=== PATIENT | male | born 1980 | race Two or more races ===

== ENCOUNTER 2020-04-27 12:29 | Inpatient (IN) | payer MEDICAID, OTHER ==
[~2020-04-27] VITALS: Ht 180.3 cm; Wt 113.0 kg
[2020-04-27] MEDS ORDERED: cloNIDine HCL 0.1 MG TAB PO ONE ×2 (13:15→21:15)
[2020-04-27 13:52] LABS: Basophils # (auto) 0.1 10 ^3/uL (0-0.2); Basophils % (auto) 0.9 % (0.0-2.0); Eosinophils # (auto) 0.3 10 ^3/uL (0-0.8); Eosinophils % (auto) 4.3 % (0.0-7.0); Hematocrit 45.1 % (41.0-53.0); Hemoglobin 15.3 g/dL (13.5-17.5); Lymphocytes # (auto) 1.8 10 ^3/uL (0.4-5.4); Lymphocytes % (auto) 29.7 % (10.0-50.0); Mean Corpuscular Hemoglobin 31.4 pg (28.0-32.0); Mean Corpuscular Hgb Conc. 33.9 g/dL (32.0-36.0); Mean Corpuscular Volume 92.6 fL (80.0-100.0); Monocytes # (auto) 0.6 10 ^3/uL (0-1.3); Monocytes % (auto) 9.5 % (0.0-12.0); Neutrophils # (auto) 3.3 10 ^3/uL (1.6-8.6); Neutrophils % (auto) 55.6 % (37.0-80.0); Nucleated Red Blood Cells % 0.1 %; Platelet Count (auto) 210 10^3/uL (140-450); Red Blood Cells 4.87 10^6/uL (4.5-5.90); Red Cell Distribution Width 13.3 % (11.8-14.3)
[2020-04-27 14:08] LABS: INR 1.12 (0.9-1.15)
[2020-04-27 14:18] LABS: Albumin 3.5 g/dL (3.4-5.0); BUN/Creatinine Ratio 6.7; Potassium 3.6 mmol/L (3.5-5.1)
[2020-04-27 14:20] LABS: Bilirubin, Total 0.8 mg/dL (0.2-1.0); Total Protein 9.7 g/dL (6.4-8.2)
[2020-04-27] MEDS ORDERED: OXYMETAZOLINE HCL 0.05 % NASAL SPRAY 15ML EACHNOSTRI ONE (16:15)
[2020-04-27] MEDS ORDERED: COCAINE HCL 4% TOP SOL 4ML TOP ONE (16:30)
[2020-04-27] MEDS ORDERED: SILVER NITRATE-POTAS NITRA STICK TOP ONE (16:30)
[2020-04-27] MEDS ORDERED: diazePAM 5 MG TAB PO ONE (19:30)
[2020-04-27] MEDS ORDERED: ACETAMINOPHEN 325 MG TAB PO ONE (20:15)
[2020-04-27] MEDS ORDERED: HYDROcodone-ACET 5/325MG TAB PO ONE (20:15)
[2020-04-27] MEDS ORDERED: cloNIDine HCL 0.1 MG TAB PO PRN (22:45)
[2020-04-27] MEDS ORDERED: TEMAZEPAM 15 MG CAP PO PRN (22:45)
[2020-04-27] MEDS ORDERED: ONDANSETRON HCL 4 MG/2 ML VIAL IV PRN (22:45)
[2020-04-27] MEDS ORDERED: LABETALOL HCL 5 MG/ML 4ML SYRINGE IV ONE (22:45)
[2020-04-27 23:23] LABS: Hematocrit 42.2 % (41.0-53.0); Hemoglobin 14.4 g/dL (13.5-17.5)
[2020-04-28] MEDS ORDERED: hydrALAZINE HCL 20 MG/ML VL IV ONE (04:00)
[2020-04-28] MEDS: ACETAMINOPHEN 325 MG TAB PO PRN ×3 (04:19→15:31)
[2020-04-28 06:07] LABS: Basophils # (auto) 0 10 ^3/uL (0-0.2); Basophils % (auto) 0.5 % (0.0-2.0); Eosinophils # (auto) 0.1 10 ^3/uL (0-0.8); Eosinophils % (auto) 1.5 % (0.0-7.0); Hematocrit 43.2 % (41.0-53.0); Hemoglobin 14.7 g/dL (13.5-17.5); Lymphocytes # (auto) 1.6 10 ^3/uL (0.4-5.4); Mean Corpuscular Hemoglobin 31.6 pg (28.0-32.0); Monocytes # (auto) 0.7 10 ^3/uL (0-1.3); Monocytes % (auto) 7.8 % (0.0-12.0); Neutrophils # (auto) 6.1 10 ^3/uL (1.6-8.6); Neutrophils % (auto) 71.2 % (37.0-80.0); Nucleated Red Blood Cells % 0.1 %; Platelet Count (auto) 198 10^3/uL (140-450); Red Blood Cells 4.65 10^6/uL (4.5-5.90); Red Cell Distribution Width 13.4 % (11.8-14.3); White Blood Cell 8.6 10^3/uL (4.4-10.8)
[2020-04-28 06:29] LABS: Calcium 8.5 mg/dL (8.5-10.1); Potassium 3.5 mmol/L (3.5-5.1)
[2020-04-28 06:31] LABS: BUN/Creatinine Ratio 10.6
[2020-04-28] MEDS ORDERED: LISINOPRIL 10 MG TAB PO SCH (10:00)
[2020-04-28] MEDS: FAMOTIDINE 20 MG TAB PO SCH ×2 (10:40→21:27)
[2020-04-28] MEDS ORDERED: cloNIDine HCL 0.1 MG TAB PO PRN (15:00)
[2020-04-28] MEDS ORDERED: amLODIPine BESYLATE 5 MG TAB PO ONE (15:00)
[2020-04-28] MEDS ORDERED: METOPROLOL SUCCINATE XL 50 MG TAB PO ONE (15:15)
[2020-04-28 16:27] VITALS: BP 158/88
[2020-04-28] MEDS ORDERED: LORazepam 0.5 MG TAB PO PRN (17:15)
[2020-04-28 22:00] VITALS: BP 145/82
[2020-04-29 05:10] VITALS: BP 147/70
[2020-04-29 07:17] LABS: Potassium 3.8 mmol/L (3.5-5.1)
[2020-04-29 07:18] LABS: Basophils # (auto) 0 10 ^3/uL (0-0.2); Basophils % (auto) 0.4 % (0.0-2.0); Eosinophils # (auto) 0.1 10 ^3/uL (0-0.8); Eosinophils % (auto) 0.8 % (0.0-7.0); Hematocrit 43.5 % (41.0-53.0); Hemoglobin 15.2 g/dL (13.5-17.5); Lymphocytes # (auto) 2.2 10 ^3/uL (0.4-5.4); Lymphocytes % (auto) 19.9 % (10.0-50.0); Mean Corpuscular Hemoglobin 32.3 pg (28.0-32.0); Mean Corpuscular Hgb Conc. 34.9 g/dL (32.0-36.0); Mean Corpuscular Volume 92.5 fL (80.0-100.0); Monocytes # (auto) 1.1 10 ^3/uL (0-1.3); Monocytes % (auto) 10.2 % (0.0-12.0); Neutrophils # (auto) 7.5 10 ^3/uL (1.6-8.6); Neutrophils % (auto) 68.7 % (37.0-80.0); Nucleated Red Blood Cells % 0.2 %; Platelet Count (auto) 215 10^3/uL (140-450); Red Cell Distribution Width 13.1 % (11.8-14.3); White Blood Cell 10.9 10^3/uL (4.4-10.8)
[2020-04-29 07:33] LABS: Albumin 3.1 g/dL (3.4-5.0); BUN/Creatinine Ratio 9.3; Bilirubin, Total 1.2 mg/dL (0.2-1.0); Total Protein 9.4 g/dL (6.4-8.2)
[2020-04-29 09:00] VITALS: BP 124/80
[2020-04-29] MEDS ORDERED: amLODIPine BESYLATE 5 MG TAB PO SCH (10:00)
[2020-04-29] MEDS ORDERED: METOPROLOL SUCCINATE XL 50 MG TAB PO SCH (10:00)
[2020-04-29] MEDS: FAMOTIDINE 20 MG TAB PO SCH (11:18)
[2020-04-29 14:38] VITALS: BP 124/80
== END 2020-04-29 15:08 | disposition home or self-care (01) | DRG 115 ==
LOC: ER 12:29 → OVERFLOW 12:30 → CENTRAL 04-28 14:25
PROVIDERS: ADMIT Nurse Practitioner; ATTEND Internal Medicine
PROC: 2Y41X5Z Packing of Nasal Region using Packing Material (ICD-10-PCS; principal; 2020-04-27)
DX: R04.0 Epistaxis (principal); E66.9 Obesity, unspecified; E87.1 Hypo-osmolality and hyponatremia; F41.9 Anxiety disorder, unspecified; R65.10 Systemic inflammatory response syndrome (SIRS) of non-infectious origin without acute organ dysfunction; Z20.822 Contact with and (suspected) exposure to COVID-19; I10 Essential (primary) hypertension; Z79.899 Other long term (current) drug therapy; Z91.14 Patient's other noncompliance with medication regimen; Z68.32 Body mass index [BMI] 32.0-32.9, adult
CPT/HCPCS: 30901; 36415; 71045; 80048; 80053; 84443; 85014; 85018; 85025; 85610; 85730; 87426; 96374; 96375; G0378; J3490

== ENCOUNTER 2020-05-02 18:06 | Emergency (ER) | payer MEDICAID ==
[~2020-05-02] VITALS: Ht 180.3 cm; Wt 104.3 kg
[2020-05-02 18:18] VITALS: BP 160/100
[2020-05-02] MEDS ORDERED: cefTRIAXone W LIDOCAINE 1 GM IM IM ONE (20:00)
[2020-05-02] MEDS ORDERED: cefTRIAXone SOD 1,000 MG VL IM ONE (20:15)
[2020-05-02] MEDS ORDERED: LIDOCAINE 1% HCL (LOCAL ANESTH.) INJ 20ML MDV ID ONE (20:15)
== END 2020-05-02 20:31 | disposition home or self-care (01) ==
LOC: ER 18:06
DX: J32.0 Chronic maxillary sinusitis (principal); R09.81 Nasal congestion; I10 Essential (primary) hypertension
CPT/HCPCS: 70486; 96372; 99284; J0696; J2001

== ENCOUNTER → 2020-10-07 | Outpatient (CLI) | payer MEDICAID ==
[2020-10-07 09:32] LABS: Basophils # (auto) 0 10 ^3/uL (0-0.2); Basophils % (auto) 0.8 % (0.0-2.0); Eosinophils # (auto) 0 10 ^3/uL (0-0.8); Eosinophils % (auto) 0.8 % (0.0-7.0); Hemoglobin 15.8 g/dL (13.5-17.5); Lymphocytes # (auto) 1.1 10 ^3/uL (0.4-5.4); Lymphocytes % (auto) 21.5 % (10.0-50.0); Mean Corpuscular Hemoglobin 31.8 pg (28.0-32.0); Mean Corpuscular Volume 90.7 fL (80.0-100.0); Monocytes # (auto) 0.5 10 ^3/uL (0-1.3); Monocytes % (auto) 10.1 % (0.0-12.0); Neutrophils # (auto) 3.5 10 ^3/uL (1.6-8.6); Neutrophils % (auto) 66.8 % (37.0-80.0); Nucleated Red Blood Cells % 0.2 %; Red Blood Cells 4.96 10^6/uL (4.5-5.90); Red Cell Distribution Width 13.7 % (11.8-14.3); White Blood Cell 5.3 10^3/uL (4.4-10.8)
[2020-10-07 09:52] LABS: Potassium 3.8 mmol/L (3.5-5.1)
[2020-10-07 10:07] LABS: Albumin 3.6 g/dL (3.4-5.0); BUN/Creatinine Ratio 9.4; Bilirubin, Total 0.7 mg/dL (0.2-1.0); Calcium 8.6 mg/dL (8.5-10.1)
== END | disposition home or self-care (01) ==
LOC: LAB 08:21
PROVIDERS: ATTEND Internal Medicine
DX: I10 Essential (primary) hypertension (principal); Z79.899 Other long term (current) drug therapy
CPT/HCPCS: 36415; 80053; 80061; 83036; 85025

== ENCOUNTER → 2020-12-01 | Outpatient (CLI) | payer MEDICAID ==
[2020-12-01 09:35] LABS: Albumin 3.1 g/dL (3.4-5.0); Bilirubin, Direct 0.3 mg/dL (0-0.2); Bilirubin, Total 0.6 mg/dL (0.2-1.0); Total Protein 9.6 g/dL (6.4-8.2)
[2020-12-01 13:21] LABS: Hepatitis A Ab IgM Negative
[2020-12-01 13:39] LABS: Hepatitis B Surface Antigen Negative (Negative)
[2020-12-01 13:51] LABS: Hepatitis B Core IgM Negative
[2020-12-01 13:59] LABS: Hepatitis B Surface Antibody Positive
[2020-12-01 14:15] LABS: Hepatitis A Total Antibody Negative
[2020-12-01 14:27] LABS: Hepatitis C Antibody Negative (Negative)
[2020-12-01 14:58] LABS: Hepatitis B Core Total AB Negative
== END | disposition home or self-care (01) ==
LOC: LAB 08:15
PROVIDERS: ATTEND Internal Medicine
DX: R79.89 Other specified abnormal findings of blood chemistry (principal)
CPT/HCPCS: 36415; 80076; 86704; 86705; 86706; 86708; 86709; 86803; 87340

== ENCOUNTER → 2021-02-27 | Outpatient (CLI) | payer MEDICAID ==
[2021-02-27 08:21] LABS: Basophils # (auto) 0.1 10 ^3/uL (0-0.2); Basophils % (auto) 1.9 % (0.0-2.0); Eosinophils # (auto) 0.1 10 ^3/uL (0-0.8); Eosinophils % (auto) 3.7 % (0.0-7.0); Hemoglobin 14.5 g/dL (13.5-17.5); Lymphocytes # (auto) 1.6 10 ^3/uL (0.4-5.4); Lymphocytes % (auto) 40.1 % (10.0-50.0); Mean Corpuscular Hemoglobin 31.8 pg (28.0-32.0); Mean Corpuscular Hgb Conc. 33.7 g/dL (32.0-36.0); Mean Corpuscular Volume 94.3 fL (80.0-100.0); Monocytes # (auto) 0.3 10 ^3/uL (0-1.3); Neutrophils # (auto) 1.8 10 ^3/uL (1.6-8.6); Neutrophils % (auto) 46.3 % (37.0-80.0); Nucleated Red Blood Cells % 0.1 %; Red Blood Cells 4.56 10^6/uL (4.5-5.90); Red Cell Distribution Width 13.7 % (11.8-14.3)
[2021-02-27 08:28] LABS: INR 1.18 (0.9-1.15); Partial Thromboplastin Time 31.2 sec (23.6-33.0)
[2021-02-27 13:19] LABS: Chloride 106 mmol/L (98-107); Potassium 3.7 mmol/L (3.5-5.1); Sodium 138 mmol/L (136-145)
[2021-02-27 13:20] LABS: Alanine Aminotransferase 127 U/L (16-61); Albumin 3.1 g/dL (3.4-5.0); Alkaline Phosphatase 120 U/L (45-117); Anion Gap 9 (5-15); Aspartate Aminotransferase 214 U/L (15-37); BUN/Creatinine Ratio 8.8; Bilirubin, Total 0.5 mg/dL (0.2-1.0); Blood Urea Nitrogen 5 mg/dL (7-18); Calcium 8.4 mg/dL (8.5-10.1); Carbon Dioxide 23 mmol/L (21-32); Cholesterol 248 mg/dL (< 200); GFR African American 205 mL/min; GFR Non-African American 169 mL/min; Glucose 106 mg/dL (74-106); HDL Cholesterol 47 mg/dL (40-59); Total Protein 10.2 g/dL (6.4-8.2); Triglycerides 210 mg/dL (< 150)
[2021-02-27 13:21] LABS: Amylase 97 U/L (25-115); LDL Cholesterol 154 mg/dL (< 100); Lipase 602 U/L (73-393)
== END | disposition home or self-care (01) ==
LOC: LAB 07:59
PROVIDERS: ATTEND Internal Medicine
DX: R73.03 Prediabetes (principal); E78.5 Hyperlipidemia, unspecified; K76.0 Fatty (change of) liver, not elsewhere classified
CPT/HCPCS: 36415; 80053; 80061; 82150; 83036; 83690; 85025; 85610; 85652; 85730